=== PATIENT | female | born 1965 ===

== ENCOUNTER 2016-09-13 20:50 | Emergency (ER) | payer BC, OTHER ==
[2016-09-13 21:00] VITALS: BP 118/76; PULSE 82; RESP 16; TEMP 98; O2SAT 100
--- NOTE | 2016-09-13 22:31 | ED PDOC ---
HPI: General Adult Time Seen by Provider: 09/13/16 22:25 Chief Complaint (Nursing): Cough, Cold, Congestion Chief Complaint (Provider): Cough, Cold, Congestion History Per: Patient History/Exam Limitations: no limitations Onset/Duration Of Symptoms: Days (Since 09/05/2016.) Current Symptoms Are (Timing): Still Present Additional Complaint(s): 51 y/o female presents to the emergency department with a complaint of a cough associated with chest pain, sputum (green), sore throat, headache, and body aches that worsens at night since 09/05/2016. Denies fever, chills, ear pain, or seasonal allergies. PMD: Dr. Mega Argueta MD Past Medical History Reviewed: Historical Data, Nursing Documentation, Vital Signs Vital Signs: Last Vital Signs Temp 98.0 F 09/13/16 20:58 Pulse 82 09/13/16 20:58 Resp 16 09/13/16 20:58 BP 118/76 09/13/16 20:58 Pulse Ox 100 09/13/16 22:40 - Medical History PMH: No Chronic Diseases - Surgical History Surgical History: No Surg Hx - Family History Family History: States: Unknown Family Hx - Home Medications Home Medications: Ambulatory Orders Medication Instructions Recorded Ibuprofen [Motrin] 600 mg PO Q8 PRN #6 tab 11/09/14 oxyCODONE/Acetaminophen [Percocet 1 ea PO BID PRN #8 tab 11/09/14 5/325 mg Tab] Albuterol HFA [Ventolin HFA 90 2 puff IH Q6 #200 puff 09/13/16 mcg/actuation (8 g)] Guaifenesin [Mucinex] 600 mg PO BID #14 tab.er.12h 09/13/16 - Allergies Allergies/Adverse Reactions: Allergies Allergy/AdvReac Type Severity Reaction Status Date / Time Penicillins Allergy RASH Verified 09/13/16 20:58 Review of Systems ROS Statement: Except As Marked, All Systems Reviewed And Found Negative Constitutional: Negative for: Fever, Chills, Other (Seasonal allergies) ENT: Negative for: Ear Pain Cardiovascular: Positive for: Chest Pain Respiratory: Positive for: Cough, Sputum (Green) Musculoskeletal: Positive for: Other (Body aches) Neurological: Positive for: Headache Physical Exam - Reviewed Nursing Documentation Reviewed: Yes Vital Signs Reviewed: Yes - Physical Exam Appears: Positive for: Non-toxic, No Acute Distress Head Exam: Positive for: ATRAUMATIC, NORMOCEPHALIC Skin: Positive for: Normal Color, Warm, Dry ENT: Positive for: Other (Post nasal drip). Negative for: Pharyngeal Erythema Neck: Positive for: Normal, Supple Cardiovascular/Chest: Positive for: Regular Rate, Rhythm. Negative for: Murmur Respiratory: Positive for: Normal Breath Sounds. Negative for: Accessory Muscle Use, Respiratory Distress Neurologic/Psych: Positive for: Alert, Oriented - ECG O2 Sat by Pulse Oximetry: 100 (RA) Pulse Ox Interpretation: Normal - Radiology X-Ray: Interpreted by Me X-Ray Interpretation: No Acute Disease Medical Decision Making Medical Decision Making: Time: 22:25 Initial impression: Viral Syndrome; Rule out Pneumonia Initial plan: --Chest Two X-ray Views chest xray negative will Rx mucinex and albuterol inhaler and advise to continue f.u with primary care provider. VS are stable appearing. Pt looks well and comfortable. Scribe Attestation: Documented by Elizabeth Vasques, acting as a scribe for Lakeisha Agarwal PA-C. Provider Scribe Attestation: All medical record entries made by the Scribe were at my direction and personally dictated by me. I have reviewed the chart and agree that the record accurately reflects my personal performance of the history, physical exam, medical decision making, and the department course for this patient. I have also personally directed, reviewed, and agree with the discharge instructions and disposition. Disposition - Clinical Impression Clinical Impression: Cough - Patient ED Disposition Is Patient to be Admitted: No Counseled Patient/Family Regarding: Studies Performed, Diagnosis, Need For Followup, Rx Given - Disposition Disposition: Routine/Home Disposition Time: 22:56 Condition: STABLE Prescriptions: Albuterol HFA [Ventolin HFA 90 mcg/actuation (8 g)] 2 puff IH Q6 #200 puff Guaifenesin [Mucinex] 600 mg PO BID #14 tab.er.12h Instructions: Upper Respiratory Infection (ED)
--- NOTE | 2016-09-14 09:07 | RAD ---
HISTORY: cough COMPARISON: No prior. TECHNIQUE: Chest PA and lateral FINDINGS: LUNGS: No active pulmonary disease. PLEURA: No significant pleural effusion identified. No pneumothorax apparent. CARDIOVASCULAR: No radiographic findings to suggest acute or significant cardiovascular disease. OSSEOUS STRUCTURES: No significant abnormalities. VISUALIZED UPPER ABDOMEN: Normal. OTHER FINDINGS: None. IMPRESSION: No active disease.
== END 2016-09-13 23:20 | disposition home or self-care (01) ==
LOC: H.ER 20:50
DX: B34.9 Viral infection, unspecified (principal); R05 Cough; Z88.0 Allergy status to penicillin